=== PATIENT | female | born 1955 | race Caucasian/White ===

== ENCOUNTER 2020-10-06 17:39 | Emergency (ER) | payer BC ==
[~2020-10-06] VITALS: Ht 165.1 cm; Wt 112.1 kg
[2020-10-06 18:19] VITALS: BP 121/72
--- NOTE | 2020-10-06 18:34 | PHYS DOC ---
Past History Past Medical History: No Pertinent History Additional Past Medical Histor: Blood Clots Past Surgical History: Cholecystectomy Additional Past Surgical Histo: ACL Repair Left Alcohol Use: None General Adult EDM: Chief Complaint: LOWER EXT PAIN HPI: HPI: 62-year-old female presents with right upper leg pain. The patient has been having intermittent cramping sensation along the medial aspect of her right upper leg. Her primary care physician sent her to the emergency room for an ultrasound DVT. Patient has had a spontaneous DVT 40 years ago. She does not believe she is had one since. She denies any trauma, planes, trainings, or car rides. The pain is a cramping sensation. Usually mild but has been up to moderate level. She had difficulty sleeping last night. She denies fever chills. She denies shortness of breath, diaphoresis, chest pain. Review of Systems: Review of Systems: Constitutional: Denies fever or chills Eyes: Denies change in visual acuity HENT: Denies nasal congestion or sore throat Respiratory: Denies cough or shortness of breath Cardiovascular: Denies chest pain or edema GI: Denies abdominal pain, nausea, vomiting, bloody stools or diarrhea : Denies dysuria Musculoskeletal: Denies back pain or joint pain Integument: Denies rash Neurologic: Denies headache, focal weakness or sensory changes Endocrine: Denies polyuria or polydipsia Lymphatic: Denies swollen glands Psychiatric: Denies depression or anxiety Allergies: Allergies: Allergies Coded Allergies Type Severity Reaction Last Updated Verified No Known Drug Allergies 10/06/20 No Physical Exam: PE: Constitutional: Well developed, well nourished, no acute distress, non-toxic appearance. [] HENT: Normocephalic, atraumatic, bilateral external ears normal, oropharynx moist, no oral exudates, nose normal. [] Eyes: PERRLA, EOMI, conjunctiva normal, no discharge. [] Neck: Normal range of motion, no tenderness, supple, no stridor. [] Cardiovascular:Heart rate regular rhythm, no murmur [] Lungs & Thorax: Bilateral breath sounds clear to auscultation [] Abdomen: Bowel sounds normal, soft, no tenderness, no masses, no pulsatile masses. [] Skin: Warm, dry, no erythema, no rash. [] Back: No tenderness, no CVA tenderness. [] Extremities: No tenderness, no cyanosis, no clubbing, ROM intact, no edema. [] Neurologic: Alert and oriented X 3, normal motor function, normal sensory function, no focal deficits noted. [] Psychologic: Affect normal, judgement normal, mood normal. [] Current Patient Data: Vital Signs: Vital Signs Date Time Temp Pulse Resp B/P (MAP) Pulse Ox O2 Delivery O2 Flow Rate FiO2 10/06/20 18:19 98.5 65 20 121/72 (88) 98 Room Air EKG: EKG: [] Radiology/Procedures: Radiology/Procedures: [] Impressions: Right lower extremity venous duplex study 10/06/2020 Clinical History: Right leg pain for several days.. History of DVT at the age of 21. Technique: Using a combination of real time ultrasound imaging and color-flow and pulse Doppler imaging techniques along with graded compression and augmentation, duplex evaluation of the deep venous system of the right lower extremity was performed. Multiple images were obtained. Findings: There is no sonographic evidence of deep venous thrombosis involving the visualized deep venous structures of the right lower extremity. Impression: Negative study. Electronically signed by: Mario Funes MD (10/06/2020 8:06 PM) [id number] DICTATED AND SIGNED BY: MARIO FUNES MD DATE: 10/06/202005 CC: TYRONE TALLEY DO; VIC SILVA MD ~ Heart Score: Risk Factors: Risk Factors: DM, Current or recent (<one month) smoker, HTN, HLP, family hi story of CAD, obesity. Risk Scores: Score 0 - 3: 2.5% MACE over next 6 weeks - Discharge Home Score 4 - 6: 20.3% MACE over next 6 weeks - Admit for Clinical Observation Score 7 - 10: 72.7% MACE over next 6 weeks - Early Invasive Strategies Course & Med Decision Making: Course & Med Decision Making Pertinent Labs and Imaging studies reviewed. (See chart for details) The patient's labs are unremarkable. Her ultrasound is negative for DVT. This is likely musculoskeletal in nature. She is stable for discharge at this time. [] Dragon Disclaimer: Dragon Disclaimer: This electronic medical record was generated, in whole or in part, using a voice recognition dictation system. Departure Departure: Impression: Primary Impression: Right thigh pain Disposition: 01 DC HOME SELF CARE/HOMELESS Condition: STABLE Referrals: VIC SILVA MD (PCP) TYRONE TALLEY DO Oct 06, 2020 18:34
[2020-10-06 19:13] LABS: CALCIUM 9.8 mg/dL (8.5-10.1); CREATININE 0.8 mg/dL (0.6-1.0); GFR 72.4; POTASSIUM 4.2 mmol/L (3.5-5.1)
[2020-10-06 19:14] LABS: BASO # 0.1 x10^3/uL (0.0-0.2); BASO % 1 % (0-3); EOS # 0.3 x10^3/uL (0.0-0.7); EOS % 3 % (0-3); HEMATOCRIT 43.3 % (36.0-47.0); HEMOGLOBIN 14.2 g/dL (12.0-15.5); LYMPH # 2.9 x10^3/uL (1.0-4.8); LYMPH % 33 % (24-48); MEAN CORPUSCULAR HEMOGLOBIN 30 pg (25-35); MEAN CORPUSCULAR HGB CONC 33 g/dL (31-37); MEAN CORPUSCULAR VOLUME 92 fL (79-100); MONO # 0.6 x10^3/uL (0.0-1.1); MONO % 7 % (0-9); NEUT # 5.1 x10^3uL (1.8-7.7); NEUT % 57 % (31-73); PLATELET COUNT 245 x10^3/uL (140-400); WHITE BLOOD COUNT 8.9 x10^3/uL (4.0-11.0)
[2020-10-06 19:18] LABS: ALBUMIN 3.8 g/dL (3.4-5.0); ALBUMIN/GLOBULIN RATIO 1.2 (1.0-1.7); TOTAL BILIRUBIN 0.5 mg/dL (0.2-1.0); TOTAL PROTEIN 7.1 g/dL (6.4-8.2)
--- NOTE | 2020-10-06 20:09 | RAD ---
Right lower extremity venous duplex study 10/06/2020 Clinical History: Right leg pain for several days.. History of DVT at the age of 21. Technique: Using a combination of real time ultrasound imaging and color-flow and pulse Doppler imaging techniques along with graded compression and augmentation, duplex evaluation of the deep venous system of the right lower extremity was performed. Multiple images were obtained. Findings: There is no sonographic evidence of deep venous thrombosis involving the visualized deep venous structures of the right lower extremity. Impression: Negative study. Electronically signed by: Mario Dietz MD (10/06/2020 8:06 PM) [id number]
== END 2020-10-06 20:22 | disposition home or self-care (01) ==
LOC: ER 17:39
DX: M79.651 Pain in right thigh (principal)
CPT/HCPCS: 36415; 80053; 85025; 93971; 99284-25